=== PATIENT | female | born 1990 | race Two or more races ===

== ENCOUNTER 2017-09-19 14:49 | Emergency (ER) | payer MEDICAID, OTHER ==
[~2017-09-19] VITALS: Ht 154.9 cm; Wt 90.7 kg
[2017-09-19 15:53] LABS: Albumin 3.7 g/dL (3.4-5.0); BUN/Creatinine Ratio 18.2; Bilirubin, Total 0.3 mg/dL (0.2-1.0); Calcium 8.4 mg/dL (8.5-10.1); Potassium 3.8 mmol/L (3.5-5.1)
[2017-09-19 15:55] LABS: Basophils # (auto) 0.1 uL; Eosinophils # (auto) 0.3 uL; Eosinophils % (auto) 2.8 % (0.0-7.0); Hematocrit 36.1 % (36.0-46.0); Hemoglobin 11.6 g/dL (12.2-16.2); Lymphocytes # (auto) 2.3 uL; Lymphocytes % (auto) 24.5 % (10.0-50.0); Mean Corpuscular Hemoglobin 28.5 pg (28.0-32.0); Mean Corpuscular Hgb Conc. 32.1 g/dL (32.0-36.0); Mean Corpuscular Volume 88.7 fL (80.0-100.0); Mean Platelet Volume 10.3 fL (6.9-10.8); Monocytes # (auto) 0.7 uL; Monocytes % (auto) 7.7 % (0.0-12.0); Platelet Count (auto) 232 10^3/uL (140-450); Red Cell Distribution Width 16.2 % (11.8-14.3); White Blood Cell 9.4 10^3/uL (4.4-10.8)
[2017-09-19 16:01] LABS: Urine RBC None Seen /hpf (0 - 4)
[2017-09-19 17:05] VITALS: BP 166/90
[2017-09-19 17:49] LABS: Urine Bilirubin Negative (Negative); Urine Blood 2+ /uL (Negative); Urine Color Colorless (Yellow); Urine Glucose Normal (Normal); Urine Ketone Negative (Negative); Urine Nitrite Negative (Negative); Urine Squamous Epithelial Cell FEW /hpf (<5); Urine Urobilinogen Normal (Negative)
== END 2017-09-19 19:44 | disposition home or self-care (01) ==
LOC: ER 14:49
DX: N93.8 Other specified abnormal uterine and vaginal bleeding (principal); R06.02 Shortness of breath
CPT/HCPCS: 36415; 76830; 76856; 80053; 81001; 84702; 85025

== ENCOUNTER 2021-10-02 00:02 | Emergency (ER) | payer MEDICAID ==
[~2021-10-02] VITALS: Ht 177.8 cm; Wt 68.0 kg
[2021-10-02 00:21] VITALS: BP 118/72
== END 2021-10-02 03:08 | disposition home or self-care (01) ==
LOC: EDBD 00:02 → ER 00:02
DX: S06.0X0A Concussion without loss of consciousness, initial encounter (principal); S50.01XA Contusion of right elbow, initial encounter; S80.02XA Contusion of left knee, initial encounter; V89.2XXA Person injured in unspecified motor-vehicle accident, traffic, initial encounter; Y93.89 Activity, other specified; Y92.89 Other specified places as the place of occurrence of the external cause; Y99.8 Other external cause status
CPT/HCPCS: 70450; 73080; 73562; 81025

== ENCOUNTER 2024-05-16 02:02 | Emergency (ER) | payer MEDICAID, OTHER ==
[~2024-05-16] VITALS: Ht 154.9 cm; Wt 68.0 kg
[2024-05-16] MEDS: MORPHINE SULFATE 4 MG/ML SYR/VIAL IV ONE (02:50)
[2024-05-16] MEDS: ONDANSETRON HCL 4 MG/2 ML VIAL IV ONE (02:51)
[2024-05-16] MEDS: SODIUM CHLORIDE 0.9% 1,000 ML IV ONE (02:52)
[2024-05-16 03:10] VITALS: O2SAT 97
[2024-05-16 04:30] VITALS: BP 146/95; PULSE 85; RESP 12; O2SAT 97
[2024-05-16] MEDS: KETOROLAC TROMETH 30 MG/ML 1ML VIAL IV ONE (05:40)
[2024-05-16] MEDS ORDERED: BAC09TP TOP (05:47)
[2024-05-16] MEDS ORDERED: ACET-1304 PO (05:47)
[2024-05-16] MEDS ORDERED: IBUP-1456 PO (05:47)
[2024-05-16] MEDS ORDERED: METH-1181 PO (05:47)
== END 2024-05-16 06:03 | disposition home or self-care (01) ==
LOC: ER 02:02
DX: S01.91XA Laceration without foreign body of unspecified part of head, initial encounter (principal); S16.1XXA Strain of muscle, fascia and tendon at neck level, initial encounter; S20.219A Contusion of unspecified front wall of thorax, initial encounter; S20.229A Contusion of unspecified back wall of thorax, initial encounter; S80.02XA Contusion of left knee, initial encounter; F15.90 Other stimulant use, unspecified, uncomplicated; V89.2XXA Person injured in unspecified motor-vehicle accident, traffic, initial encounter; Y93.89 Activity, other specified; Y92.89 Other specified places as the place of occurrence of the external cause; Y99.8 Other external cause status
CPT/HCPCS: 29505; 70450; 72125; 73562; 73590; 96361; 96374; 96375; 99285; J1885; J2270; J2405; J7030